=== PATIENT | male | born 1970 | race Caucasian/White ===

== ENCOUNTER 2023-07-26 20:33 | Emergency (ER) | payer SELFPAY ==
[2023-07-26] VITALS (26 sets, daily range): BP systolic 149–210; BP diastolic 96–177; PULSE 79–98; RESP 15–16; TEMP 36.9; O2SAT 95–98
--- NOTE | 2023-07-26 20:45 | RT.EKG_ITS ---
APPROVED REPORT Exam: Resting ECG Reason for Exam: weakness Patient Location: E HR:79 bpm ECG Measurements Heart Rate 79 AXIS FL 152 P 48 QRSd 84 QRS 0 QT 366 T 59 QTc 420 Conclusion Sinus rhythm...normal P axis, V-rate 60- 99 Inferior infarct, old...Q >35mS, II III aVF Narrow complex normal sinus rhythm at a rate of 79. Normal axis. Intervals within normal limits. N o ST segment abnormalities. T wave inversion in aVL. No acute injury pattern. No prior for compari son.
[2023-07-26 21:20] LABS: Bilirubin Negative (Negative); Blood Negative (Negative); Clarity Clear (Clear); Glucose 100 mg/dL (Negative); Ketones Negative (Negative); Leukocyte Esterase Negative (Negative); Nitrite Negative (Negative); Specific Gravity 1.015 (1.005-1.025); Urobilinogen 0.2 mg/dL (Up to 0.2)
[2023-07-26 21:26] LABS: BE (Venous) 4 mmol/L (-2-3); HCO3 (Venous) 28 mmol/L (23-28); O2 Sat (Venous) 97 %; TCO2 (Venous) 24 mmol/L (24-29); pCO2 (Venous) 40 mmHg (41-51); pH (Venous) 7.46 (7.31-7.41); pO2 (Venous) 82 mmHg
[2023-07-26 21:28] LABS: Abs Immature Grans 0.03 10^3/uL (0.0-0.06); Absolute Basophil Count 0.06 10^3/uL (0.0-0.2); Absolute Eosinophil Count 0.04 10^3/uL (0.0-0.7); Absolute Lymphocyte Count 0.86 10^3/uL (1.2-3.4); Absolute Neutrophil Count 4.23 10^3/uL (1.2-6.7); Eosinophils % 0.7 %; HCT 44.6 % (40.0-50.0); Immature Grans % 0.5 %; Lymphocytes % 14.5 %; MCH 32.8 pg (27.0-33.0); MCHC 35.9 % (32.0-36.0); MCV 91 fL (80-95); MPV 9.3 fL (8.0-11.0); Monocytes % 11.8 %; Neutrophils % 71.5 %; Platelet Count 180 10^3/uL (130-400); RBC 4.88 10^6/uL (4.36-5.78); RDW 12.5 % (11.8-14.1); RDW-SD 41.3 fL; WBC 5.92 10^3/uL (4.4-10.8)
[2023-07-26] MEDS: Normal Saline 1,000 ML 1000 ML IV (21:36)
[2023-07-26 21:52] LABS: ALT 271 U/L (16-63); AST 274 U/L (15-37); Albumin 4.1 g/dL (3.4-5.0); Alkaline Phosphatase 120 U/L (46-116); Anion Gap 9.1 mmol/L (3-11); BUN 9 mg/dL (7-18); Bilirubin, Total 0.9 mg/dL (0.2-1.0); CO2 26.9 mmol/L (21.0-32.0); CREATININE 0.9 mg/dL (0.70-1.30); Calcium 9.3 mg/dL (8.5-10.1); Chloride 101 mmol/L (98-107); Estimated GFR 104.05 (mL/min/1.73m2); Glucose 100 mg/dL (74-106); Magnesium 2.3 mg/dL (1.8-2.4); Potassium 3.6 mmol/L (3.5-5.1); Sodium 137 mmol/L (136-145); TSH (W/Ref FT4) 1.01 uIU/mL (0.36-3.74); Total Protein 8.3 g/dL (6.4-8.2); Troponin I < 50 ng/L (< or =60)
[2023-07-26] MEDS: LORazepam 1 MG TAB 2 MG PO (22:13)
--- NOTE | 2023-07-26 23:55 | W.ED.GENAD ---
Discharge Plan Disposition Patient Disposition: Home Discharge Details Clinical Impression: Elevated blood pressure reading, Alcohol withdrawal, Anxiety, Elevated liver enzymes Primary Care Provider: None,None ED Provider: Corrie Mars Home Meds and New Rx's Prescriptions: New chlordiazepoxide HCl 25 mg capsule 25 - 50 mg PO TID PRNQty: 15 0RF Discharge Instructions Instructions: Alcohol Withdrawal (ED), Hypertension (ED), Anxiety (ED), Alcoholic Hepatitis (ED) Additional Instructions: Take Zofran as needed for nausea and vomiting Do not combine alcohol and Librium Your liver enzymes are elevated likely consistent with take the Librium 25 to 50 mg 3 times daily and this will prevent alcohol withdrawal which can make you really sick Alcohol, if you stop drinking now you can prevent liver failure in the future Your blood pressure is also elevated, recommend talking to your doctor when you return home Talk to your doctor about anxiety as well, there are medications that can help with this Please return immediately should you develop hallucinations or worsening symptoms HPI General Date/Time Provider Initiated Documentation: 07/26/23 20:57. HPI Narrative: This 52-year-old male presents with report of diaphoresis, shakiness, anxiety, nausea. Patient reportedly has been under significant stress as his mother resides in [place] and is in the hospital. She reportedly needs surgery and he has been raising money for her to have surgery. She became sick approximately a week ago. Patient states he was so nauseous and anxious that he stopped drinking alcohol approximately 3 days ago. He states he has been drinking heavily, approximately 8 drinks a day for the past 3 weeks. He states prior to that he was drinking every other day 2 or 3 drinks. He denies any prior history of alcohol withdrawal. He thinks his symptoms are related to anxiety. He states he thinks he has longstanding anxiety and does drink occasionally for his nerves per patient. He denies any vomiting or diarrhea. He states he has a doctor in [place] and does not have any documented medical history. Denies any headache or trauma. He denies any auditory or visual hallucinations. Related Data Home Medications Medication Instructions Recorded Confirmed chlordiazepoxide HCl 25 mg capsule 25 - 50 mg (1 - 2 x 25 mg) PO TID 07/26/23 PRN #15 caps Previous Rx's Medication Instructions Recorded chlordiazepoxide HCl 25 mg capsule 25 - 50 mg (1 - 2 x 25 mg) PO TID 07/26/23 PRN #15 caps General Stated Complaint: [facility] RONNELL: 3 Exam Narrative Exam Narrative: Alert and oriented 52-year-old male, tremulous, pupils equal round reactive to light and accommodation, lungs clear to auscultation, cardiac rate rhythm regular, no abdominal tenderness, no pallor, alert and oriented x 4, tremulous, ambulatory with steady gait, no hallucinations, no suicidal ideation, anxious in appearance Course Vital Signs Vital signs: Vital Signs Temperature 36.9 C 07/26/23 20:38 Pulse 98 H 07/26/23 20:38 Respiratory Rate 15 07/26/23 20:38 Blood Pressure 149/96 H 07/26/23 20:38 Pulse Oximetry 97 07/26/23 20:38 Temperature 36.9 C 07/26/23 20:38 Temperature Source Tympanic 07/26/23 20:38 Pulse 87 07/26/23 22:51 Respiratory Rate 16 07/26/23 21:00 Respiratory Effort Normal, Non-Labored 07/26/23 21:00 Respiratory Depth Normal 07/26/23 21:00 Respiratory Pattern Normal 07/26/23 21:00 Blood Pressure 162/116 H 07/26/23 22:51 Blood Pressure Mean 131 07/26/23 22:51 Blood Pressure Position Sitting 07/26/23 20:38 Pulse Oximetry 97 07/26/23 23:00 Oxygen Delivery Method Room Air 07/26/23 20:38 Oxygen Flow Rate 0 07/26/23 20:38 Lab/Test Results Lab/Test Results: Laboratory Tests Range/Units 07/26/23 07/26/23 21:10 21:21 WBC (4.4-10.8) 10^3/uL 5.92 RBC (4.36-5.78) 10^6/uL 4.88 Hgb (13.5-17.5) g/dL 16.0 Hct (40.0-50.0) % 44.6 MCV (80-95) fL 91 MCH (27.0-33.0) pg 32.8 MCHC (32.0-36.0) % 35.9 RDW (11.8-14.1) % 12.5 Plt Count (130-400) 10^3/uL 180 MPV (8.0-11.0) fL 9.3 Immature Gran % % 0.5 Neutrophils % % 71.5 Lymphocytes % % 14.5 Monocytes % % 11.8 Eosinophils % % 0.7 Basophils % % 1.0 Nucleated RBC % (0.0-0.3) % 0.0 Absolute Neutrophils (1.2-6.7) 10^3/uL 4.23 Absolute Lymphocytes (1.2-3.4) 10^3/uL 0.86 L Absolute Monocytes (0.1-0.8) 10^3/uL 0.70 Absolute Eosinophils (0.0-0.7) 10^3/uL 0.04 Absolute Basophils (0.0-0.2) 10^3/uL 0.06 VBG pH (7.31-7.41) 7.46 H VBG pCO2 (41-51) mmHg 40 L VBG pO2 mmHg 82 VBG HCO3 (23-28) mmol/L 28 VBG Total CO2 (24-29) mmol/L 24 VBG O2 Saturation % 97 VBG Base Excess (-2-3) mmol/L 4 H Sodium (136-145) mmol/L 137 Potassium (3.5-5.1) mmol/L 3.6 Chloride (98-107) mmol/L 101 Carbon Dioxide (21.0-32.0) mmol/L 26.9 Anion Gap (3-11) mmol/L 9.1 BUN (7-18) mg/dL 9 Creatinine (0.70-1.30) mg/dL 0.9 Est GFR (CKD-EPI 2020) (mL/min/1.73m2) 104.05 Glucose (74-106) mg/dL 100 Calcium (8.5-10.1) mg/dL 9.3 Magnesium (1.8-2.4) mg/dL 2.3 Total Bilirubin (0.2-1.0) mg/dL 0.9 AST (15-37) U/L 274 H ALT (16-63) U/L 271 H Alkaline Phosphatase (46-116) U/L 120 H Troponin I (< or =60) ng/L < 50 Total Protein (6.4-8.2) g/dL 8.3 H Albumin (3.4-5.0) g/dL 4.1 TSH (0.36-3.74) uIU/mL 1.01 Urine Color (Yellow) Yellow Urine Clarity (Clear) Clear Urine pH (5-8) 7.0 Ur Specific [place] (1.005-1.025) 1.015 Urine Protein (Neg-Trace) mg/dL Negative Urine Ketones (Negative) mg/dL Negative Urine Blood (Negative) Negative Urine Nitrite (Negative) Negative Urine Bilirubin (Negative) Negative Urine Urobilinogen (Up to 0.2) mg/dL 0.2 Ur Leukocyte Esterase (Negative) Negative Urine Glucose (Negative) mg/dL 100 H Medical Decision Making Alert and oriented 52-year-old male, tremulous presenting with history of alcoholism, states he feels anxious, states that he felt nauseous and was having difficulty sleeping and so he stopped drinking alcohol roughly 3 days ago. He denies any prior history of alcohol withdrawal but he is presenting with an exam consistent with alcohol withdrawal, he has tongue fasciculations and is tremulous with hypertension. He is adamant about returning home and refuses to be admitted to the hospital, he is fully alert, oriented, of decisional capacity. His primary language is Green[place]ic, however in film recordist was used for the entirety of this visit. 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 He is aware that alcohol withdrawal is very dangerous and fabrication and assembly supervisor is willing to administer Librium, patient was supplied with 15 tablets of Librium with instructions. He was also given Zofran for home. He is aware the recommendation is for admission to the hospital. He will refrain from any alcohol use and is aware that combining alcohol with Librium can stay with his respiratory drive. Patient's liver enzymes are markedly elevated likely consistent with drinking. We had a long discussion regarding alcohol cessation and how to appropriately taper off of alcohol to prevent withdrawal. Patient was given Zofran and melatonin for home to help him sleep. He does return home to [place] on Wednesday and will follow-up with his doctor regarding anxiety and plan. Again patient has been completely oriented, alert, and of decisional capacity throughout the entirety of this visit Quality:SDOH Health Related Social Needs: No Data to Display PFSH All Active Problems (Updated 07/26/23 @ 23:32 by SIOMARA Castanon) Elevated liver enzymes (Acute) Anxiety (Chronic) Alcohol withdrawal (Acute) Elevated blood pressure reading (Acute) Social History Smoking/Tobacco Use Status: Former Tobacco Use Smoking risk assessment performed?: Yes Alcohol Intake: current Alcohol Intake frequency: 3 or more drinks per day Substance use type: does not use Housing: house Do you feel safe at home: Yes Do you feel safe in your relationship?: Yes
[2023-07-27] MEDS: Ondansetron O.D.T. 4 MG TABEF, 3 TABS/BTL PO (00:05)
[2023-07-27] MEDS: chlordiazePOXIDE 25 MG CAP 50 MG PO (00:05)
[2023-07-27] MEDS: Melatonin 3 MG TAB PO (00:05)
== END 2023-07-27 00:08 | disposition home or self-care (01) ==
PROVIDERS: Emergency Provider Physician Assistant
DX: F41.9 Anxiety disorder, unspecified (principal); R11.0 Nausea; R74.8 Abnormal levels of other serum enzymes; F10.939 Alcohol use, unspecified with withdrawal, unspecified; R03.0 Elevated blood-pressure reading, without diagnosis of hypertension
CPT/HCPCS: 36416; 80053; 82805; 82962; 93005; 96360; 99284; 81003; 83735; 84443; 84484; 85025; 93010; 99283